=== PATIENT | male | born 1995 | race Caucasian/White ===

== ENCOUNTER 2017-12-29 00:17 | Emergency (ER) | payer OTHER ==
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
[2017-12-29] MEDS ORDERED: TOPICAL SKIN ADHESIVE 1 EACH AMP TOPICAL ONE (01:54)
[2017-12-29] MEDS ORDERED: AMOXIC-POT CLAV 875MG STARTER 2 EACH TABLET PO STA (02:03)
--- NOTE | 2017-12-29 02:10 | ED ---
General Adult HPI - General Chief complaint: Head Injury Stated complaint: Facial Injury Time Seen by Provider: 12/29/17 00:42 Source: patient Mode of arrival: ambulatory Limitations: no limitations - History of Present Illness Initial comments: 22-year-old male patient presents to the emergency department today for evaluation of facial injury. Injury occurred at 2130 this evening. Patient states his playing basketball when he took an elbow to the nose. Patient states that he did sustain a laceration and has been having bleeding. Patient did have epistaxis after the injury. States he is able to breathe through the right nare without difficulty, states that the left nare is plugged. He denies any loss of consciousness. States he did fall but denies hitting his head. Denies any neck or back pain. Denies any other injuries. He denies any current headache, dizziness, weakness, blurred vision, double vision, nausea, or vomiting. Patient denies any chest pain, shortness of breath, dizziness, weakness, abdominal pain, or difficulties with bowel movements or urination. - Related Data Previous Rx's Medication Instructions Recorded Amoxic-Pot Clav 875-125Mg 1 tab PO Q12HR #14 tablet 12/29/17 [Augmentin 875-125] Allergies Allergy/AdvReac Type Severity Reaction Status Date / Time latex AdvReac Itching Verified 12/29/17 01:10 Review of Systems ROS Statement: Those systems with pertinent positive or pertinent negative responses have been documented in the HPI. ROS Other: All systems not noted in ROS Statement are negative. Past Medical History Past Medical History: No Reported History History of Any Multi-Drug Resistant Organisms: None Reported Past Surgical History: No Surgical Hx Reported Additional Past Surgical History / Comment(s): R. orbital reconstrumtio. Shoulder surgury bilat. Past Psychological History: No Psychological Hx Reported Smoking Status: Never smoker Past Alcohol Use History: None Reported Past Drug Use History: None Reported General Exam Limitations: no limitations General appearance: alert, in no apparent distress, other (This is a well- developed, well-nourished adult male patient in no acute distress. Vital signs upon presentation are temperature 97.8F, pulse 59, respirations 18, blood pressure 151/64, pulse ox 97% on room air.) Head exam: Present: atraumatic, normocephalic, normal inspection Eye exam: Present: normal appearance, PERRL, EOMI, other (No periorbital ecchymosis/raccoon eyes). Absent: scleral icterus, conjunctival injection, periorbital swelling, periorbital tenderness ENT exam: Present: normal exam, normal oropharynx, mucous membranes moist, TM's normal bilaterally (No hemotympanum), other (sign. Patient does have a 1 cm laceration to the nasal bridge. There is some crusting of blood from bilateral nares. There is no evidence of septal hematoma. No current bleeding.) Neck exam: Present: normal inspection, full ROM, other (Nontender, no step-off, no deformity to firm midline palpation of the posterior cervical spine. Full range of motion without pain or limitation.). Absent: tenderness, meningismus, lymphadenopathy Respiratory exam: Present: normal lung sounds bilaterally. Absent: respiratory distress, wheezes, rales, rhonchi, stridor Cardiovascular Exam: Present: regular rate, normal rhythm, normal heart sounds. Absent: systolic murmur, diastolic murmur, rubs, gallop, clicks GI/Abdominal exam: Present: soft, normal bowel sounds. Absent: distended, tenderness, guarding, rebound, rigid Back exam: Present: normal inspection, other (Nontender, no step-off, no deformity to firm midline palpation of the thoracic and lumbar vertebrae. Full range of motion without pain or limitation.). Absent: vertebral tenderness Neurological exam: Present: alert, oriented X3, CN II-XII intact Psychiatric exam: Present: normal affect, normal mood Skin exam: Present: warm, dry, intact, normal color. Absent: rash Course Vital Signs 12/29/17 12/29/17 00:33 02:18 Temperature 97.8 F 98.1 F Pulse Rate 59 L 71 Respiratory 18 17 Rate Blood Pressure 151/64 137/56 O2 Sat by Pulse 97 98 Oximetry Procedures - Laceration Laceration #1 Consent Obtained: verbal consent Indication: laceration Site: face (Nasal bridge) Size (cm): 1 Description: linear Depth: simple, single layer Pre-repair: irrigated extensively Type of Sutures: other (Exofin ) Patient Tolerated Procedure: well, no complications Medical Decision Making - Medical Decision Making 22-year-old male patient presents to the emergency department today for evaluation of facial injury. Physical examination does reveal nasal bridge swelling and 1 cm laceration with current bleeding. Inspection of the nose revealed no evidence of septal hematoma or current epistaxis. CT of the facial bones did reveal depressed nasal bone fracture. Patient had no raccoon eyes, evidence of Cee sign, or hemotympanum. The patient denied any significant pain, declined pain medication. Laceration was repaired using Exofin. He was started on Augmentin for prophylaxis given open nasal bone fracture. He is instructed to follow-up with ears, nose, and throat specialty. He does live in [place] he is returning Monday he is instructed to follow-up when he returns home. Return parameters were discussed in detail. He verbalizes understanding and agrees with this plan. - Radiology Data Radiology results: report reviewed, image reviewed CT facial bones was performed. Report was reviewed in its entirety. Impression by Dr. Gonzalez shows mildly depressed fracture of the anterior nasal bone. Disposition Clinical Impression: Nasal bone fracture Disposition: HOME SELF-CARE Condition: Good Instructions: Nasal Fracture (ED), Laceration (ED), Skin Adhesive Care (ED) Additional Instructions: Do not pick or pull at group. Complete antibiotic prescription and full. Follow-up with Ear, Nose, and Throat (ENT/Otolaryngology) specialist when you return home. Return to the nearest emergency department for evaluation if you develop any new, worsening, or concerning symptoms. Prescriptions: Amoxic-Pot Clav 875-125Mg [Augmentin 875-125] 1 tab PO Q12HR #14 tablet Is patient prescribed a controlled substance at d/c from ED?: No Referrals: Nonstaff,Physician [Primary Care Provider] - 1-2 days Time of Disposition: 02:10
[2017-12-29 02:19] VITALS: BP 137/56; PULSE 71; RESP 17; TEMP 98.1
== END 2017-12-29 02:19 | disposition home or self-care (01) ==
LOC: EC 00:17
DX: S02.2XXB Fracture of nasal bones, initial encounter for open fracture (principal); S01.21XA Laceration without foreign body of nose, initial encounter; Z91.040 Latex allergy status; Z98.890 Other specified postprocedural states; W22.8XXA Striking against or struck by other objects, initial encounter; Y93.67 Activity, basketball
CPT/HCPCS: 12011; 70486; 99283